=== PATIENT | male | born 1980 | race Caucasian/White ===

== ENCOUNTER 2021-06-15 10:44 | Outpatient (REF) | payer OTHER, SELFPAY | END 2021-06-15 10:45 | disposition home or self-care (01) | LOC: HO.LAB 10:44 | PROVIDERS: PCP Internal Medicine; Visit Provider Internal Medicine | DX: Z20.822 Contact with and (suspected) exposure to COVID-19 (principal) | CPT/HCPCS: C9803; U0003; U0005 ==

== ENCOUNTER 2021-06-19 12:10 | Emergency (ER) | payer OTHER, SELFPAY ==
--- NOTE | ~2021-06-19 | XR_ITS ---
EXAMINATION: XR LUMBOSACRAL SPINE CLINICAL INFORMATION: Radicular pain down right leg. COMPARISON: None TECHNIQUE: Three views of the lumbosacral spine. FINDINGS: There is normal lumbar segmentation with 5 nonrib-bearing lumbar vertebrae of normal height and normal lumbar lordosis. There is borderline dextrocurvature which may be positional. There is normal bony mineralization. No vertebral compression or spondylolisthesis or destructive process. There are degenerative disc changes L5-S1 with mild disc narrowing and endplate sclerosis and spurring. There is mild disc narrowing L4-L5 and mild anterior spurring at L3-L4. The SI joints and visualized sacrum are unremarkable. There is moderate stool throughout colon. No gaseous dilatation of bowel. XR/XR lumbar spine 2-3V IMPRESSION: 1. Degenerative disc changes L5-S1. 2. Lesser degenerative disc changes L3-L4 and L4-L5. 3. No vertebral compression or spondylolisthesis. 4. Moderate stool throughout colon.
[2021-06-19 12:45] VITALS: BP 130/72; PULSE 66; RESP 18; TEMP 36.5; O2SAT 95; BMI 31.6
--- NOTE | 2021-06-19 13:48 | ED.BACK ---
HPI - Back Pain/Injury General Chief Complaint: Back Pain/Injury Stated Complaint: back pain Time Seen by Provider: 06/19/21 13:48 Source: patient Mode of arrival: ambulatory Limitations: no limitations History of Present Illness HPI Narrative: patient with 2 days of lower back pain. 1 year ago he injured his back and he had injections. 2 days ago he rolled out of bed but his pain is worse, all on the right side radiation down his leg. No paraesthesias, no fecal incontinence, able to urinate normally. MD elicited complaint: back pain Pertinent past history: prior back pain Onset (ago): day(s) Timing: constant Severity: moderate Similar Symptoms Previously: Yes Quality: sharp Radiation: right upper leg Exacerbating factors: movement Associated symptoms: denies other symptoms Work related injury: No Related Data Previous Rx's Medication Instructions Recorded cyclobenzaprine 10 mg tablet 10 mg PO TID #10 tab 06/19/21 naproxen 500 mg tablet (Naprosyn) 500 mg PO BID #20 tab 06/19/21 Allergies Allergy/AdvReac Type Severity Reaction Status Date / Time No Known Allergies Allergy Verified 06/19/21 12:45 Review of Systems Constitutional: Constitutional: Reports no additional constitutional complaints Eyes: Eyes: Reports no additional eye complaints ENT: Denies dizziness Cardiovascular: Cardiovascular: Reports no additional cardiovascular complaints Respiratory: Respiratory: Reports as per HPI Gastrointestinal: Gastrointestinal: Reports no additional gastrointestinal complaints Musculoskeletal: Musculoskeletal: Reports no additional musculoskeletal complaints Integumentary/Breasts: Skin/Breast: Denies rash Neurologic: Reports system reviewed and no additional complaints, except as documented, Denies dizziness and Denies Sensory deficit (Neuro) Psychiatric: Psychiatric: Denies anxiety [facility] Past Medical History Medical History No pertinent past medical history Social History Social History Advance Directives: No Advance Directives Information Provided: No Physical Exam Vital Signs: Vital Signs: Last Vital Signs Temp 97.7 F 06/19/21 12:45 Pulse 66 06/19/21 12:45 Resp 18 06/19/21 12:45 BP 130/72 06/19/21 12:45 Pulse Ox 95 06/19/21 12:45 Body Mass Index 31.6 Const: Other: Patient in pain Nutritional Appearance: average body habitus Orientation/consciousness: oriented to person and patient oriented x3 Limitations: no limitations HENMT: Head: Yes normal to inspection Ears: external ears normal General nose exam: Normal external nose present Mouth: Normal oral and palatal mucosa present and oropharynx normal Throat: Yes posterior oropharynx normal Eyes: General: appearance normal, both eyes and all related structures Neck: Other: supple Neck: Yes normal visual inspection Chest: Chest palpation & inspection: normal inspection of the chest Resp: Auscultation: clear to auscultation bilaterally Cardio: Jugular venous distension: no JVD Rate: regular rate Rhythm: regular rhythm Heart sounds: S1 normal heart sound present and S2 normal heart sound present GI: Inspection: Yes normal to inspection Palpation (GI): Soft to palpation, nontender and No hepatosplenomegaly present Auscultation: normal bowel sounds Back/Spine/Pelvis: Other: right sciatica pain, tender to palpation Skin: General skin exam: no rashes or lesions noted Neuro: Other: no weakness, normal plantar flexion and dorsiflexion General: oriented to person and patient oriented x3 Cranial nerves: Yes CN's II-XII intact bilaterally Motor exam (neuro): 5/5 motor strength present throughout Sensory Exam: No Sensory deficit (Neuro) Extrem: General: Yes normal to inspection Psych: Appearance: grossly normal Course Reevaluation(s) Reevaluation #1: Patient with lumbar arthritis as well as sciatica, will start nsaids and flexeril and dc home Time: 14:54 MDM - Back Pain/Injury Imaging Data lumbar xray: Radiologist's impression: There are degenerative disc changes L5-S1 with mild disc narrowing and endplate sclerosis and spurring. There is mild disc narrowing L4-L5 and mild anterior spurring at L3-L4. The SI joints and visualized sacrum are unremarkable. There is moderate stool throughout colon. No gaseous dilatation of bowel. XR/XR lumbar spine 2-3V IMPRESSION: ? 1. Degenerative disc changes L5-S1. 2. Lesser degenerative disc changes L3-L4 and L4-L5. 3. No vertebral compression or spondylolisthesis. 4. Moderate stool throughout colon. Discharge Plan Discharge Clinical Impression: Lumbar radiculopathy Sciatica Qualifiers: Laterality: right Qualified Code(s): M54.31 - Sciatica, right side Patient Disposition: Home, Self-Care Instructions: Sciatica (ED), Acute Low Back Pain (ED), Lumbar Radiculopathy (ED) Prescriptions: New cyclobenzaprine 10 mg tablet 10 mg PO TID Qty: 10 RF: 0 naproxen [Naprosyn] 500 mg tablet 500 mg PO BID Qty: 20 RF: 0 Referrals: Jag Nichols MD [Primary Care Provider] - 5 days
[2021-06-19] MEDS: Ketorolac Tromethamine 60 MG/2 ML VIAL IM (14:14)
[2021-06-19] MEDS: Cyclobenzaprine HCl 10 MG TABLET PO (14:15)
[2021-06-19 15:16] VITALS: BP 122/72; PULSE 68; RESP 18; O2SAT 96
== END 2021-06-19 15:31 | disposition home or self-care (01) ==
PROVIDERS: Emergency Provider Emergency Medicine; PCP Internal Medicine
DX: M54.40 Lumbago with sciatica, unspecified side (principal); M54.16 Radiculopathy, lumbar region
CPT/HCPCS: 72100; 96372; 99284; J1885

== ENCOUNTER 2022-07-01 18:41 | Emergency (ER) | payer MEDICAID, SELFPAY ==
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
[2022-07-01 18:54] VITALS: BP 107/63; BP 130/78; PULSE 98; RESP 18; TEMP 36.6; O2SAT 98; BMI 30.9
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
--- OUTSIDE RECORDS SUMMARY | 2022-07-01 19:59 | XMS_ITS | Continuity of Care Document ---
:1980 Author Organization [facility] Address [address] [place] [address], [address] [place] [id number]- Care Team Providers Name Role Phone Not on Staff, PCP Primary Care Physician Unavailable Encounter [facility] Date(s): 04/27/22 - 05/27/22 [facility] [address] [place] [address], [address] [place] [id number] Attending Physician: Ceferino Bailey Admitting Physician: AdmCeferino marrero Referring Physician: AdmtrCeferino Allergies, Adverse Reactions, Alerts No Known Allergies Immunizations Given and Recorded Vaccine Date Status Refusal Reason tetanus/diphtheria/pertussis, acel(Tdap) 11/02/21 Given Medications Methadone 0 Refills, Maintenance, 11/02/21 9:10:00 EDT, Partial fill upon patient request if the prescription is for a schedule II opioid drug. Start Date: 11/02/21 Status: Ordered Problem List Condition Confirmation Course Effective Dates Status Health Stat us Informant Obese class I Confirmed Active Social History Social History Type Response Smoking Status 10 or more cigarettes (1/2 p ack or more)/day in last 30 days entered on: 11/02/21 Sex Patient Care team information PersonnelName: Not on Staff, PCP
[2022-07-01] MEDS: Ibuprofen 600 MG TABLET PO (21:17)
== END 2022-07-01 21:21 | disposition home or self-care (01) ==
PROVIDERS: Emergency Provider Internal Medicine
DX: S16.1XXA Strain of muscle, fascia and tendon at neck level, initial encounter (principal); S90.32XA Contusion of left foot, initial encounter; M54.2 Cervicalgia; R51.9 Headache, unspecified; V43.52XA Car driver injured in collision with other type car in traffic accident, initial encounter; Y93.9 Activity, unspecified; Y92.410 Unspecified street and highway as the place of occurrence of the external cause; Y99.9 Unspecified external cause status
CPT/HCPCS: 72125; 73620; 99283; 99284